=== PATIENT | female | born 1945 | race Caucasian/White ===

== ENCOUNTER 2018-11-29 09:36 | Day surgery (SDC) | payer MEDICARE, OTHER ==
[~2018-11-29] VITALS: Ht 157.5 cm; Wt 86.2 kg
[~2018-11-29 09:36] MED LIST: CALCIUM ANTACI200 MG PO; CLONIDINE HCL0.1 MG PO; COLESTID1 GM PO; CRANBERRY CONC500 MG PO; DEPAKOTE500 MG PO; DOCUSATE CALCI240 MG PO; HALOPERIDOL5 MG PO; KRISTALOSE10 GM PO; LEVOTHYROXINE112 MCG PO; LORAZEPAM2 MG PO; MAPAP325 MG PO; MILK OF MA400 MG/5 M PO; MINERAL OIL MISC; MUPIROCIN5 GM MISC; NYSTATIN1 EAC2 MISC; PRESERVISION A1 EACH PO; PREVIDENT473 ML PO; RANITIDINE HCL150 M1 PO; TRIPLE ANTIBIO1 EACH TOP; VASELINE WHITE P5 G1 TOP; ZYPREXA10 MG PO
--- NOTE | 2018-11-29 13:55 | NUR ---
11/29/18 1355 Sonia Stewart 1339- PT ARRIVES TO PACU NONAROUSABLE TO NOXIOUS STIMULI WITH OPA IN PLACE. RESP EVEN AND UNLABORED. OXYGEN SAT HIGH 90'S TO 100% ON 8L VIA MASK.
--- NOTE | 2018-11-29 14:32 | NUR ---
PATIENT BACK IN DAY SURGERY ROOM FROM PACU. DROWSY, BUT AWAKE. VS CHECKED. IV SITE WNL. SCDs ON. MOUTH WNL WITH SMALL AMOUNT OF BLOOD SEEN INSIDE MOUTH. PATIENT APPEARS COMFORTABLE. NO S/SX OF PAIN SEEN. CAREGIVERS AT BEDSIDE. PATIENT COOPERATIVE WITH VS. CALL LIGHT WITHIN REACH.
--- NOTE | 2018-11-29 15:48 | NUR ---
1500: PATIENT TOLERATED PUDDING. PATIENT STATES NEED TO VOID. IV DC'D WNL. TIP INTACT. DRESSING APPLIED. PATIENT ASSISTED TO GET DRESSED AND OOB. AMBULATED WITH ASSISTANCE TO BATHROOM. GAIT STEADY. VOID WITHOUT DIFFICULTY. AMBULATED WITH CAREGIVERS BACK TO ROOM. 1525: DISCHARGE INSTRUCTIONS GIVEN TO CAREGIVERS. PATIENT REFUSED WHEELCHAIR RIDE TO CAREGIVERS [place]. PATIENT AMBULATED TO VAN WITH RN AND CAREGIVER ON EACH SIDE. GAIT STEADY. PATIENT DISCHARGED TO HOME WITH CAREGIVERS.
== END 2018-11-29 15:25 | disposition home or self-care (01) ==
LOC: EDBD 09:36 → OPS 09:36 → DS 09:36 → OPS 10:30
PROVIDERS: Dentist
PROC: 0CDWXZ0 Extraction of Upper Tooth, Single, External Approach (ICD-10-PCS; 2018-11-29)
PROC: 0CDXXZ1 Extraction of Lower Tooth, Multiple, External Approach (ICD-10-PCS; principal; 2018-11-29 10:30)
DX: K03.6 Deposits [accretions] on teeth (principal); M26.29 Other anomalies of dental arch relationship; F25.9 Schizoaffective disorder, unspecified; Z79.899 Other long term (current) drug therapy
CPT/HCPCS: 70320; J0330; J2405; J2704; J3010; J7120

== ENCOUNTER 2020-11-26 07:51 | Day surgery (SDC) | payer MEDICARE, OTHER ==
[~2020-11-26 07:51] MED LIST changes: +AMLODIPINE BESYL5 MG PO; +ANTACID430 MG; +LISINOPRIL-HCT1 EAC2 PO; +MUPIROCIN1 GM
--- NOTE | 2020-11-26 08:42 | NUR ---
0810: ORDER RECEIVED FROM STEFANY BREWER FOR 15MG VERSED PO. ADMINISTERED ORDERED. 0830: IV STARTED IN RIGHT HAND ON SECOND ATTEMPT AND LABS DRAWN FROM START
--- NOTE | 2020-11-26 10:27 | NUR ---
11/26/20 Sung7 Sonia Stewart 1021- PT ARRIVES TO PACU NONAROUSABLE TO NOXIOUS STIMULI. PT NEEDING A JAW LIFT TO MAINTAIN A PATENT AIRWAY. RESP EVEN AND UNLABORED. OXYGEN SAT HIGH 90'S TO 100% ON 10L VIA MASK. 1023- PT'S HEAD OF THE BED AND PILLOW ADJUSTED TO MAINTAIN A PATENT AIRWAY WITHOUT HAVING TO DO A JAW THRUST.
--- NOTE | 2020-11-26 11:14 | NUR ---
1055 PT BACK TO HER ROOM FROM PACU, ALERT AND AWAKE, CAREGIVER AT BED SIDE, WATER AND APPLE SAUCE PROVIDED PT ASKING IF SHE CAN GO HOME CAREGIVER REASURES HER THAT THEY WILL BE GOING HOME SOON.
--- NOTE | 2020-11-26 12:29 | NUR ---
LE 1210: VSS, PT WITHOUT C/O PAIN. JOHANN APPLE SAUCE. IV D/C'D WITH CATH TIP INTACT AND PRESSURE APPLIED TO SITE. D/C INSTRUCTIONS PROVIDED AND DISCUSSED WITH CAREGIVER. VOICES UNDERSTANDING AND DENIES QUESTIONS OR CONCERNS. CAREGIVER HELPS PT PREPARE FOR D/C LE 1215: PT DECLINES W/C. AMBULATES OFF OF UNIT WITH STANDBY ASSIST FROM CAREGIVER AND RN FOLLOWS WITH W/C. TRANSFERS INTO VEHICLE WITH ASSIST. RESP EVEN AND UNLABORED. NO PHYSICAL S/S OF DISTRESS AT THIS TIME
== END 2020-11-26 12:15 | disposition home or self-care (01) ==
LOC: OPS 07:51 → DS 07:51 → OPS 09:00
PROVIDERS: ATTEND Dentist General Practice
PROC: 0CDWXZ2 Extraction of Upper Tooth, All, External Approach (ICD-10-PCS; 2020-11-26)
PROC: 0CDXXZ2 Extraction of Lower Tooth, All, External Approach (ICD-10-PCS; principal; 2020-11-26 09:15)
DX: Z01.21 Encounter for dental examination and cleaning with abnormal findings (principal); K05.219 Aggressive periodontitis, localized, unspecified severity; K05.10 Chronic gingivitis, plaque induced; K03.6 Deposits [accretions] on teeth; K08.109 Complete loss of teeth, unspecified cause, unspecified class
CPT/HCPCS: 00170; 80053; 80061; 80164; 84443; 85025; J1100; J1885; J2001; J2370; J2405; J2704; J3010